=== PATIENT | male | born 1985 | race African-American/Black ===

== ENCOUNTER 2019-02-28 10:45 | Outpatient (CLI) | payer OTHER | END 2019-02-28 10:52 | disposition home or self-care (01) | LOC: RAD 10:45 | DX: M54.89 Other dorsalgia (principal); M25.552 Pain in left hip ==

== ENCOUNTER 2019-05-21 11:41 | Emergency (ER) | payer OTHER ==
[~2019-05-21] VITALS: Ht 180.3 cm; Wt 107.0 kg
== END 2019-05-21 13:52 | disposition home or self-care (01) ==
LOC: ER 11:41
DX: S51.821A Laceration with foreign body of right forearm, initial encounter (principal); W45.8XXA Other foreign body or object entering through skin, initial encounter; Y93.89 Activity, other specified; Y92.098 Other place in other non-institutional residence as the place of occurrence of the external cause; Y99.8 Other external cause status

== ENCOUNTER 2019-11-23 07:57 | Emergency (ER) | payer OTHER ==
[~2019-11-23] VITALS: Ht 180.3 cm; Wt 108.9 kg
== END 2019-11-23 09:18 | disposition home or self-care (01) ==
LOC: ER 07:57
DX: K08.89 Other specified disorders of teeth and supporting structures (principal)

== ENCOUNTER 2021-02-17 03:48 | Emergency (ER) | payer OTHER ==
[~2021-02-17] VITALS: Ht 180.3 cm; Wt 106.1 kg
[2021-02-17] MEDS ORDERED: KETO10TA2 PO (07:38)
[2021-03-01] MEDS ORDERED: ACETAMINOPHEN650 M2 (01:46)
== END 2021-02-17 08:11 | disposition home or self-care (01) ==
LOC: ER 03:48
DX: S80.02XA Contusion of left knee, initial encounter (principal); S60.212A Contusion of left wrist, initial encounter; W18.39XA Other fall on same level, initial encounter; Y93.89 Activity, other specified; Y92.89 Other specified places as the place of occurrence of the external cause; Y99.8 Other external cause status

== ENCOUNTER 2021-05-12 09:00 | Outpatient (CLI) | payer OTHER ==
[~2021-05-12 09:00] MED LIST: ACETAMINOPHEN650 M2; KETO10TA2 PO
== END 2021-05-12 16:36 | disposition home or self-care (01) ==
LOC: PPH VACUNA 09:00
PROVIDERS: ATTEND Emergency Medicine Pediatric Emergency Medicine
DX: Z23 Encounter for immunization (principal)

== ENCOUNTER 2022-09-09 08:55 | Outpatient (CLI) | payer OTHER | END 2022-09-09 09:02 | disposition home or self-care (01) | LOC: RAD 08:55 | DX: M54.50 Low back pain, unspecified (principal) ==

== ENCOUNTER 2022-09-22 07:31 | Outpatient (CLI) | payer OTHER | END 2022-09-22 07:39 | disposition home or self-care (01) | LOC: MRI 07:31 | PROVIDERS: ATTEND Chiropractor Sports Physician | DX: M54.17 Radiculopathy, lumbosacral region (principal) | CPT/HCPCS: 72148 ==

== ENCOUNTER 2024-04-27 22:40 | Emergency (ER) | payer OTHER ==
[~2024-04-27] VITALS: Ht 180.3 cm; Wt 96.2 kg
[2024-04-27] MEDS ORDERED: FAMOTIDINE/PF 20 MG in 0.9 % SODIUM CHLORIDE 8 ML IV PUSH STA (23:20)
[2024-04-27] MEDS ORDERED: ONDANSETRON HCL 2 MG/ML VIAL ONE (23:24)
[2024-04-27] MEDS ORDERED: FAMOTIDINE/PF 20 MG/2 ML VIAL ONE (23:24)
[2024-04-27] MEDS ORDERED: ONDANSETRON HCL 2 MG/ML VIAL IV ONE (23:30)
[2024-04-27] MEDS ORDERED: 0.9 % SODIUM CHLORIDE 1,000 ML IV SCH (23:30)
[2024-04-27] MEDS ORDERED: DIPHENOXYLATE HCL/ATROPINE 1 UDTAB TABLET PO ONE (23:30)
[2024-04-27 23:34] LABS: HEMATOCRIT 37.3 % (39.0-48.0); HEMOGLOBIN 12.9 g/dL (13-16.00); MEAN CORPUSCULAR HEMOGLOBIN 30.1 pg (27.00-32.0); MEAN CORPUSCULAR HGB CONC 34.6 g/dl (32.0-36.0); PLATELET COUNT 222 K/uL (150-450); RED BLOOD COUNT 4.29 M/uL (4.00-6.00); RED CELL DISTRIBUTION WIDTH 13.5 % (11.5-14.5)
[2024-04-27 23:55] LABS: ALBUMIN 3.4 gm/dL (3.4-5.0); BILIRUBIN TOTAL 0.29 mg/dL (0.3-1.2); CALCIUM 8.7 mg/dL (8.5-10.1); CREATININE SERUM 1.1 mg/dL (0.70-1.30); GFR 74.92; GLOBULINA 3.7 G/DL (2.4-3.5); POTASSIUM 3.48 mEq/L (3.5-5.1); TOTAL PROTEIN 7.1 gm/dL (6.4-8.2)
[2024-04-28] MEDS ORDERED: HYOSCYAMINE SULFATE 0.125 MG TAB.SUBL ONE (01:54)
[2024-04-28] MEDS ORDERED: HYOSCYAMINE SULFATE 0.125 MG TAB.SUBL SL ONE (02:00)
== END 2024-04-28 01:57 | disposition home or self-care (01) ==
LOC: ER 22:41
PROVIDERS: General Practice
DX: K29.70 Gastritis, unspecified, without bleeding (principal); R14.3 Flatulence; R14.1 Gas pain; R14.2 Eructation; K52.9 Noninfective gastroenteritis and colitis, unspecified; R10.9 Unspecified abdominal pain

== ENCOUNTER 2024-04-29 19:41 | Emergency (ER) | payer OTHER ==
[~2024-04-29] VITALS: Ht 180.3 cm; Wt 96.2 kg
[2024-04-29] MEDS ORDERED: 0.9 % SODIUM CHLORIDE 1,000 ML IV STA (20:28)
[2024-04-29] MEDS ORDERED: FAMOTIDINE/PF 20 MG/2 ML VIAL ONE (20:43)
[2024-04-29] MEDS ORDERED: FAMOTIDINE/PF 20 MG/2 ML VIAL IV ONE ×2 (20:45→21:00)
[2024-04-29 21:00] LABS: HEMATOCRIT 43.2 % (39.0-48.0); HEMOGLOBIN 14.4 g/dL (13-16.00); MEAN CELL VOLUME 88.7 fL (80.0-100.00); MEAN CORPUSCULAR HEMOGLOBIN 29.6 pg (27.00-32.0); MEAN CORPUSCULAR HGB CONC 33.4 g/dl (32.0-36.0); PLATELET COUNT 321 K/uL (150-450); RED BLOOD COUNT 4.87 M/uL (4.00-6.00); RED CELL DISTRIBUTION WIDTH 13.5 % (11.5-14.5)
[2024-04-29 21:17] LABS: CALCIUM 8.9 mg/dL (8.5-10.1); CREATININE SERUM 0.88 mg/dL (0.70-1.30); GFR 96.92; POTASSIUM 3.48 mEq/L (3.5-5.1)
[2024-04-29] MEDS ORDERED: METRONIDAZOLE/SODIUM CHLORIDE 500 MG/100 ML PIGGYBACK IV ONE ×2 (21:23→21:30)
[2024-04-29] MEDS ORDERED: CIPROFLOXACIN IN 5 % DEXTROSE 400 MG/200 ML PIGGYBAG IV ONE ×2 (21:23→21:30)
[2024-04-29 21:35] LABS: URINE APPEARANCE Clear; URINE BILIRRUBIN Negative (NEGATIVE); URINE BLOOD Negative; URINE COLOR Yellow; URINE GLUCOSE Negative (NEGATIVE); URINE KETONE 15 (NEGATIVE); URINE LEUKOCYTE Negative; URINE NITRATE Negative; URINE PROTEIN Trace (NEGATIVE); URINE UROBILINOGEN 0.2 E.U./dl
[2024-04-29 21:38] LABS: URINE BACTERIA 80.6 uL (0.0-1933); URINE EPITHELIAL CELLS 7.2 uL (0.0-38.8); URINE RBC 2.7 uL (0.0-20.8); URINE WBC 9.4 uL (0.0-23.2)
== END 2024-04-30 01:21 | disposition home or self-care (01) ==
LOC: ER 19:43
PROVIDERS: Emergency Medicine
DX: K52.89 Other specified noninfective gastroenteritis and colitis (principal)